=== PATIENT | female | born 1990 | race Two or more races ===

== ENCOUNTER → 2024-01-01 09:41 | Outpatient (CLI) | payer OTHER ==
[2024-01-01 11:00] LABS: PH,URINE 5.5 (5.0-8.0); URINE APPEARANCE Clear; URINE BILIRRUBIN Negative (NEGATIVE); URINE BLOOD Negative; URINE COLOR Yellow; URINE GLUCOSE Negative (NEGATIVE); URINE KETONE Negative (NEGATIVE); URINE LEUKOCYTE Negative; URINE NITRATE Negative; URINE PROTEIN Negative (NEGATIVE); URINE UROBILINOGEN 0.2 E.U./dl
[2024-01-01 11:03] LABS: URINE BACTERIA 8.8 uL (0.0-1933)
[2024-01-01 11:04] LABS: HEMATOCRIT 41.7 % (36.0-45.00); HEMOGLOBIN 14.2 g/dL (12.0-15.00); MEAN CELL VOLUME 80.9 fL (80.00-100.00); MEAN CORPUSCULAR HEMOGLOBIN 27.6 pg (27.00-32.0); MEAN CORPUSCULAR HGB CONC 34.1 g/dl (32.0-36.0); PLATELET COUNT 249 K/uL (150-450); RED BLOOD COUNT 5.15 M/uL (4.00-6.00); RED CELL DISTRIBUTION WIDTH 13.1 % (11.5-14.5)
[2024-01-01 11:06] LABS: URINE EPITHELIAL CELLS 0.7 uL (0.0-38.8); URINE WBC 1.5 uL (0.0-23.2)
[2024-01-01 11:11] LABS: ERYTHROCYTE SEDIMENTATION RATE 25 mm/hr
[2024-01-01 12:10] LABS: ALBUMIN 4.2 gm/dL (3.4-5.0); BILIRUBIN TOTAL 0.42 mg/dL (0.3-1.2); CALCIUM 9.4 mg/dL (8.5-10.1); CREATININE SERUM 1.03 mg/dL (0.55-1.02); GFR 60.98; GLOBULINA 3.6 G/DL (2.4-3.5); PHOSPHOROUS 3.5 mg/dL (2.5-4.9); POTASSIUM 4.62 mEq/L (3.5-5.1); TOTAL PROTEIN 7.8 gm/dL (6.4-8.2); TSH 1.11 uIU/mL (0.358-3.74)
[2024-01-01 12:18] LABS: C-REACTIVE PROTEIN 1.08 MG/DL (0.00-0.29)
== END | disposition home or self-care (01) ==
LOC: LAB 09:41
PROVIDERS: ATTEND Personal Emergency Response Attendant
DX: E03.9 Hypothyroidism, unspecified (principal); D64.9 Anemia, unspecified; E11.9 Type 2 diabetes mellitus without complications; E78.2 Mixed hyperlipidemia; N39.0 Urinary tract infection, site not specified; D11.9 Benign neoplasm of major salivary gland, unspecified; E55.9 Vitamin D deficiency, unspecified; K51.511 Left sided colitis with rectal bleeding; M05.739 Rheumatoid arthritis with rheumatoid factor of unspecified wrist without organ or systems involvement; M06.9 Rheumatoid arthritis, unspecified; D44.0 Neoplasm of uncertain behavior of thyroid gland; R97.20 Elevated prostate specific antigen [PSA]; D68.9 Coagulation defect, unspecified; E53.9 Vitamin B deficiency, unspecified

== ENCOUNTER 2024-01-03 09:09 | Outpatient (CLI) | payer OTHER ==
[2024-01-03 10:38] LABS: ob POSITIVE (NEGATIVE)
== END 2024-01-03 09:14 | disposition home or self-care (01) ==
LOC: LAB 09:09
PROVIDERS: ATTEND Personal Emergency Response Attendant
DX: E03.9 Hypothyroidism, unspecified (principal); D64.9 Anemia, unspecified; E11.9 Type 2 diabetes mellitus without complications; E78.2 Mixed hyperlipidemia; N39.0 Urinary tract infection, site not specified; D11.9 Benign neoplasm of major salivary gland, unspecified; E55.9 Vitamin D deficiency, unspecified; K51.511 Left sided colitis with rectal bleeding; M05.739 Rheumatoid arthritis with rheumatoid factor of unspecified wrist without organ or systems involvement; M06.9 Rheumatoid arthritis, unspecified; D44.0 Neoplasm of uncertain behavior of thyroid gland; R97.20 Elevated prostate specific antigen [PSA]; D68.9 Coagulation defect, unspecified; E53.9 Vitamin B deficiency, unspecified

== ENCOUNTER → 2024-09-16 | Emergency (ER) | payer OTHER ==
[~2024-09-16] VITALS: Ht 167.6 cm; Wt 78.9 kg
[2024-09-16 11:20] LABS: BASO % 1.0 % (0.1-1.2); EOS # 0.09 (0.04-0.54); EOS % 1.3 % (0.7-7.0); LYMPH # 2.13 (1.18-3.74); LYMPH % 31.0 % (19.3-53.1); MEAN PLATELET VOLUME 9.90 fl (9.4-12.4); MONO # 0.60 (0.24-0.82); MONO % 8.7 % (4.7-12.5); NEUT # 3.94 (1.56-6.13); NEUT % 57.3 % (34.0-71.1); RED CELL DISTRIBUTION WIDTH 12.3 % (11.6-14.4)
[2024-09-16 11:57] LABS: ALT/SGPT 45.0 U/L (12-78); AST/SGOT 19.0 U/L (15-37); BILIRUBIN TOTAL 0.42 mg/dL (0.3-1.2); BUN CREA RATIO 12.0 (7.0-25.0); CREATININE SERUM 0.94 mg/dL (0.70-1.30); GFR 91.33; GLOBULINA 4.2 G/DL (2.4-3.5); GLUCOSE FASTING 111.0 mg/dL (65-100); OSMOLALITY SERUM 281.0 MOSM/KG (275-295)
[2024-09-16 12:51] VITALS: BP 130/80; O2SAT 100
== END | disposition home or self-care (01) ==
LOC: ER 09:06
PROVIDERS: Preventive Medicine Public Health & General Preventive Medicine
DX: R00.2 Palpitations (principal); R07.89 Other chest pain